=== PATIENT | female | born 1985 | race Caucasian/White ===

== ENCOUNTER 2018-05-04 18:13 | Emergency (ER) | payer OTHER ==
[2018-05-04] MEDS ORDERED: NS 1,000 ML IV ONE (19:32)
[2018-05-04] MEDS ORDERED: KETOROLAC 30 MG/1 ML SDV IVP ONE (19:33)
[2018-05-04 19:40] LABS: PLATELET COUNT 236 10^3/uL (150-400)
--- NOTE | 2018-05-04 19:49 | EDPHY ---
H & P Stated Complaint: Bright blood from rectum since this am. Seen at . Time Seen by Provider: 05/04/18 19:29 HPI/ROS: CHIEF COMPLAINT: Bright red blood per rectum HISTORY OF PRESENT ILLNESS: Patient is a 32-year-old female whose had 3 episodes today of right red blood per rectum. Initially it was blood only but then developed in to blood mixed with stool. It is been red. No black blood. She also complains of lower abdominal cramping. She is family history of ulcer colitis, Crohn's and diverticulitis. She has not been diagnosed with any of these previously. No urinary symptoms. No vaginal symptoms. Denies risk of . She was seen in urgent care earlier today and had normal lab work including negative urinalysis and negative . She reports that they did an anoscopy but did not see any hemorrhoids or fissures. Severity: Moderate Modifying factors: None REVIEW OF SYSTEMS: Constitutional: denies: chills, fever, recent illness, recent injury EENTM: denies: blurred vision, double vision, nose congestion Respiratory: denies: cough, shortness of breath Cardiac: denies: chest pain, irregular heart rate, lightheadedness, palpitations Gastrointestinal/Abdominal: denies: abdominal pain, diarrhea, nausea, vomiting, blood streaked stools Genitourinary: denies: dysuria, frequency, hematuria, pain Musculoskeletal: denies: joint pain, muscle pain Skin: denies: lesions, rash, jaundice, bruising Neurological: denies: headache, numbness, paresthesia, tingling, dizziness, weakness Hematologic/Lymphatic: denies: blood clots, easy bleeding, easy bruising Immunologic/allergic: denies: HIV/AIDS, transplant 10 systems reviewed and negative except as noted EXAM: GENERAL: Well-appearing, well-nourished and in no acute distress. HEAD: Atraumatic, normocephalic. EYES: Pupils equal round and reactive to light, extraocular movements intact, sclera anicteric, conjunctiva are normal. ENT: TMs normal, nares patent, oropharynx clear without exudates. Moist mucous membranes. NECK: Normal range of motion, supple without lymphadenopathy or JVD. LUNGS: Breath sounds clear to auscultation bilaterally and equal. No wheezes rales or rhonchi. HEART: Regular rate and rhythm without murmurs, rubs or gallops. ABDOMEN: Soft, nontender, normoactive bowel sounds. No guarding, no rebound. No masses appreciated. : Anoscope performed, no obvious fissure or hemorrhoid that the patient does have mucosal irritation bleeding that could be consistent with Crohn's disease BACK: No CVA tenderness, no spinal tenderness, step-offs or deformities EXTREMITIES: Normal range of motion, no pitting or edema. No clubbing or cyanosis. NEUROLOGICAL: Cranial nerves II through XII grossly intact. Normal speech, normal gait. 5/5 strength, normal movement in all extremities, normal sensation , normal reflexes PSYCH: Normal mood, normal affect. SKIN: Warm, dry, normal turgor, no visible rashes or lesions. Source: Patient, Family - Personal History Current Tetanus Diphtheria and Acellular Pertussis (TDAP): Unsure - Medical/Surgical History Hx Asthma: No Hx Chronic Respiratory Disease: No Hx Diabetes: No Hx Cardiac Disease: No Hx Renal Disease: No Hx Cirrhosis: No Hx Alcoholism: No Hx HIV/AIDS: No Hx Splenectomy or Spleen Trauma: No Other PMH: pmh- pna - Family History Significant Family History: No pertinent family hx - Social History Smoking Status: Former smoker Alcohol Use: None Constitutional: Initial Vital Signs Temperature (C) 36.8 C 05/04/18 18:21 Heart Rate 81 05/04/18 18:21 Respiratory Rate 18 05/04/18 18:21 Blood Pressure 107/70 05/04/18 18:21 O2 Sat (%) 99 05/04/18 18:21 O2 Delivery Mode Room Air Allergies/Adverse Reactions: No Known Allergies Allergy (Unverified 07/20/10 04:15) Home Medications: Medication Instructions Recorded Adderall 10 MG (RX) 04/26/14 Albuterol 2 puffs IH QID PRN #1 aerosol 04/26/14 Ortho Tri-Cyclen 28 Tablet 04/26/14 predniSONE 60 mg PO DAILY #15 tab 05/04/18 Medical Decision Making - Diagnostics Imaging: Discussed imaging studies w/ call person Radiologist ED Course/Re-evaluation: Patient is feeling much better after Toradol. We discussed her CT scan which is consistent with her rectal exam. She likely has ulcerative colitis. Will refer to GI. Will start on course of steroids. Patient is understanding of this plan but obviously somewhat worried about her diagnosis. Discussed indications for returning. Differential Diagnosis: Partial list of the Differential diagnosis considered include but were not limited to; ulcerative colitis, hemorrhoid, fissure and although unlikely based on the history and physical exam, I also considered the perforation, appendicitis, diverticulitis, ovarian cyst, UTI, kidney stone. I discussed these differential diagnoses and the plan with the patient as well as the usual and expected course. The patient understands that the diagnosis is provisional and that in medicine we are not always correct and that further workup is often warranted. Usual and customary warnings were given. All of the patient's questions were answered. The patient was instructed to return to the emergency department should the symptoms at all worsen or return, otherwise to followup with the physician as we discussed. - Data Points Laboratory Results: Laboratory Results 05/04/18 19:28 05/04/18 19:28 Medications Given: Discontinued Medications Sodium Chloride (Ns) 1,000 mls @ 0 mls/hr IV EDNOW ONE; Wide Open PRN Reason: Protocol Stop: 05/04/18 19:33 Last Admin: 05/04/18 19:42 Dose: 1,000 mls Ketorolac Tromethamine (Toradol) 15 mg IVP EDNOW ONE Stop: 05/04/18 19:34 Last Admin: 05/04/18 19:48 Dose: 15 mg Prednisone (Prednisone) 60 mg PO EDNOW ONE Stop: 05/04/18 21:34 Last Admin: 05/04/18 21:57 Dose: 60 mg Departure - Departure Disposition: Home, Routine, Self-Care Clinical Impression: Colitis Condition: Fair Instructions: Colitis (ED) Referrals: Francesca Delgado PA [Primary Care Provider] - As per Instructions Prescriptions: predniSONE 60 mg PO DAILY #15 tab
[2018-05-04] MEDS ORDERED: IOHEXOL 300 mgI/ML (OMNIPAQUE) 150 ML BTL IV ONE (19:56)
[2018-05-04 21:08] VITALS: BP 123/65
[2018-05-04] MEDS ORDERED: predniSONE 20 MG TAB PO ONE (21:33)
== END 2018-05-04 21:58 | disposition home or self-care (01) ==
DX: K52.9 Noninfective gastroenteritis and colitis, unspecified (principal); E86.9 Volume depletion, unspecified
CPT/HCPCS: 96374; J1885; J7512; Q9967